=== PATIENT | female | born 1960 | race Caucasian/White ===

== ENCOUNTER 2020-05-03 09:55 | Outpatient (CLI) | payer MEDICARE, MEDICAID, SELFPAY | END 2020-05-03 09:56 | disposition home or self-care (01) | LOC: ANHAUDIO 09:58 | PROVIDERS: PCP Internal Medicine Infectious Disease; Visit Provider Internal Medicine Infectious Disease | DX: H90.3 Sensorineural hearing loss, bilateral (principal) | CPT/HCPCS: 92557; 92567 ==

== ENCOUNTER 2020-05-27 12:46 | Outpatient (RCR) | payer MEDICAID, SELFPAY | END 2020-05-27 23:59 | disposition home or self-care (01) | LOC: ANHAUDIO 12:46 | PROVIDERS: PCP Internal Medicine Infectious Disease; Visit Provider Internal Medicine Infectious Disease | DX: Z46.1 Encounter for fitting and adjustment of hearing aid (principal) | CPT/HCPCS: V5160; V5261; V5264 ==

== ENCOUNTER 2024-01-10 16:13 | Emergency (ER) | payer MEDICARE, MEDICAID, SELFPAY ==
[2024-01-10 16:24] VITALS: BP 119/80; PULSE 94; RESP 20; TEMP 36.9; O2SAT 96
--- NOTE | 2024-01-10 16:45 | ED.GENADULT ---
HPI - General Adult General Chief complaint: Eye Problems Stated complaint: Rash Source: patient, RN notes reviewed and old records reviewed Mode of arrival: ambulatory Limitations: no limitations History of Present Illness HPI narrative: 63-year-old female presents to [facility], accompanied by daughters, with complaints painful rash to left head. Per daughter's patient lost vision in left eye approximately 1 month ago. Patient has been seen by her primary care physician and Ophthalmology for visual loss already but then a couple days ago developed a rash to scalp. Related Data Home Medications Medication Instructions Recorded Confirmed escitalopram oxalate 20 mg tablet mg 01/10/24 levothyroxine 50 mcg tablet 50 mcg PO DAILY 01/10/24 01/10/24 lorazepam 1 mg tablet 1 mg PO TID 01/10/24 01/10/24 mirtazapine 15 mg tablet 15 mg PO HS 01/10/24 01/10/24 venlafaxine 75 mg tablet mg 01/10/24 Allergies Allergy/AdvReac Type Severity Reaction Status Date / Time celecoxib Allergy Unknown Unknown Verified 01/10/24 16:37 omeprazole Allergy Unknown Rash Verified 06/30/17 15:54 Penicillins Allergy Unknown Rash Verified 01/10/24 16:37 ranitidine Allergy Unknown Rash Verified 06/30/17 15:54 Review of Systems Constitutional: Constitutional: Reports no additional constitutional complaints, Denies body ache(s), Denies chills, Denies fatigue, Denies fever(s) and Denies headache(s) Eyes: Eyes: Reports no additional eye complaints and Denies blurry vision ENT: Reports system reviewed and no additional complaints, except as documented, Denies vertigo, Denies dizziness, Denies ear discharge, Denies otalgia, Denies facial pain, Denies headache(s), Denies nasal congestion, Denies nasal discharge, Denies sinus pain, Denies sinus pressure and Denies sore throat Cardiovascular: Cardiovascular: Reports no additional cardiovascular complaints, Denies chest pain, Denies chest pain at rest, Denies rapid heart rate and Denies dyspnea Respiratory: Respiratory: Reports no additional respiratory complaints, Denies chest congestion, Denies cough, Denies pain on inspiration, Denies pain with cough and Denies dyspnea Gastrointestinal: Gastrointestinal: Denies abdominal pain, Denies diarrhea, Denies nausea and Denies vomiting Integumentary/Breasts: Skin/Breast: Denies rash Neurologic: Reports system reviewed and no additional complaints, except as documented, Denies vertigo, Denies dizziness and Denies headache(s) Endocrine: Endocrine: Denies fatigue PMFSH Comments At the time of my signature, I reviewed and agree with the nursing past medical, surgical, social, and family history. There is no relevant family history pertinent to the patient complaint. Exam Const: General: cooperative, healthy appearing, no acute distress and well nourished Nutritional Appearance: well nourished Orientation/consciousness: patient oriented x3 Limitations: no limitations HENMT: Head: normal to inspection and normocephalic Ears: external ears normal, TM's normal bilaterally, mastoids normal and Abnormal EAC present Face/Nose/Sinus: normal facial exam Face and sinus: normal facial exam Mouth: Yes Normal oral and palatal mucosa present, Yes oropharynx normal and Yes moist mucous membranes Throat: tonsils normal, uvula midline and no uvular edema Eyes: General: appearance normal, both eyes and all related structures Sclera: sclerae normal Pupils: Equal, round and reactive pupils present Resp: Effort & Inspection: normal respiratory effort, able to speak in complete sentences, no audible wheezes, no cough, no respiratory distress and no retractions Auscultation: clear to auscultation bilaterally, no crackles, no rales, no rhonchi and no wheezes Cardio: Rate: regular rate Rhythm: regular rhythm Skin: General skin exam: normal color and rashes Rashes: rashes noted ( vesicular rash to left scalp) Neuro: General: patient oriented x3 Cranial nerves: Yes Equal, round a
== END 2024-01-10 16:54 | disposition home or self-care (01) ==
PROVIDERS: Emergency Provider Registered Nurse; PCP Internal Medicine Infectious Disease
DX: B02.30 Zoster ocular disease, unspecified (principal)
CPT/HCPCS: 99203; G0463